=== PATIENT | female | born 1975 | race Caucasian/White ===

== ENCOUNTER 2020-06-07 11:05 | Outpatient (CLI) | payer SELFPAY ==
--- NOTE | 2020-06-07 11:13 | MM_ITS ---
WS: [id number] BILATERAL DIGITAL DIAGNOSTIC MAMMOGRAM MAMMOGRAPHY WITH CAD CLINICAL INFORMATION: RIGHT BREAST LUMP COMPARISON: None. TECHNIQUE: Bilateral CC, MLO, and ML views. FINDINGS: The breasts are composed of heterogeneous fibroglandular density, which can limit the detection of sm all underlying mass lesions. Palpable marker upper outer right breast. Bilateral partially obscured ovoid lesions nonspecific but likely represent breast cysts. Ultrasound is pending. A few punctate calcifications. ULTRASOUND BREAST LEFT TECHNIQUE: Ultrasound left breast focused area of concern. CLINICAL INFORMATION: RIGHT BREAST LUMP COMPARISON: None. FINDINGS: Bilateral breast ultrasound demonstrates multiple bilateral cysts a few with internal debris. Largest cyst in the right at 9:00 measures 3.9 x 3.1 x 1.2 cm and the largest cyst in the left at 12:00 tiarra ures 2.0 x 2.0 x 0.7 CM. No suspicious lesions. No lesions to target for biopsy. Recommend return to annual screening mammography. MM/[place] [id number] IMPRESSION: BI-RADS: 2-Benign FOLLOW UP: 1 Year Follow-up Recommend return to annual screening mammography.
== END 2020-06-07 11:06 | disposition home or self-care (01) ==
LOC: RADSHAW 11:09
PROVIDERS: Visit Provider General Practice
DX: N63.10 Unspecified lump in the right breast, unspecified quadrant (principal); N60.01 Solitary cyst of right breast
CPT/HCPCS: 76642; 77066